=== PATIENT | male | born 2000 | race Caucasian/White ===

== ENCOUNTER 2022-07-21 19:24 | Emergency (ER) | payer SELFPAY ==
[2022-07-21] MEDS ORDERED: ONDANSETRON 4 MG/2 ML VIAL ONE ×2 (20:26→21:26)
[2022-07-21] MEDS ORDERED: MORPHINE 4 MG/ML SYR ONE ×2 (20:26→21:26)
[2022-07-21] MEDS ORDERED: FAMOTIDINE 20 MG/2 ML VIAL IV ONE (20:26)
[2022-07-21 20:52] LABS: Hematocrit 40.5 % (39.6-49.0); Lymphocytes % 14.5 % (15.3-44.8); MCV 88.6 fL (80-100); MPV 7.9 fL (7.6-11.3); RBC Red Blood Cell Count 4.58 M/uL (4.33-5.43)
[2022-07-21 21:15] LABS: Albumin 4.5 g/dL (3.4-5.0); Bilirubin Total 0.4 mg/dL (0.2-1.0); Potassium 3.7 mmol/L (3.5-5.1); Protein, Total 7.8 g/dL (6.4-8.2)
--- NOTE | 2022-07-21 21:20 | RAD REPORT ---
EXAM DESCRIPTION: CT - Abdomen Pelvis W Contrast - 07/21/2022 9:02 pm CLINICAL HISTORY: Abdominal pain COMPARISON: none. TECHNIQUE: Computed axial tomography of the abdomen pelvis was obtained. 100 cc Isovue-300 was admin istered intravenously. Oral contrast was not requested which limits evaluation of bowel and appendix All CT scans are performed using dose optimization technique as appropriate and may include automated exposure control or mA/KV adjustment according to patient size. FINDINGS: Several small right renal calculi. Delay in concentration right kidney. [id number] right hydronephrosis. Right ureter is dilated. A 3 millimeter calculus right UVJ. Ti ny nonobstructing left renal calculus. Liver, spleen, pancreas, adrenals unremarkable Normal appendix. No evidence of diverticulitis IMPRESSION: 3 millimeter calculus right UVJ resulting in mild to moderate right hydronephrosis
[2022-07-21] MEDS ORDERED: KETOROLAC 30 MG/ML INJ ONE (21:58)
[2022-07-21 22:03] LABS: Urine Blood 2+ (Negative); Urine Glucose Negative (Negative); Urine Protein Negative (Negative); Urine Specific Gravity 1.015 (1.005-1.030)
[2022-07-21 22:13] LABS: Urine Crystals Unidentified Few /HPF (None Seen); Urine Mucus Slight /HPF (None Seen); Urine RBC 21-50 /HPF (None Seen)
--- NOTE | 2022-07-21 22:22 | ER ---
Nurse's Notes [facility] Name: Anthony Sanz Age: 22 yrs Sex: Male : 2000 Arrival Date: 07/21/2022 Time: 19:26 Bed 5 Private MD: Diagnosis: Kidney stone;Right lower quadrant abdominal tenderness Presentation: 07/21 19:36 Chief complaint: Patient states: RUQ pain with N/V x4 days, with occasional burning kb3 with urination since today. Coronavirus screen: Vaccine status: Patient reports receiving the 2nd dose of the covid vaccine. Client denies travel out of the [place] in the last 14 days. Ebola Screen: Patient negative for fever greater than or equal to 101.5 degrees Fahrenheit, and additional compatible Ebola Virus Disease symptoms Patient denies exposure to infectious person. Patient denies travel to an Ebola-affected area in the 21 days before illness onset. Initial Sepsis Screen: Does the patient meet any 2 criteria? No. Patient's initial sepsis screen is negative. Does the patient have a suspected source of infection? No. Patient's initial sepsis screen is negative. Risk Assessment: Do you want to hurt yourself or someone else? Patient reports no desire to harm self or others. Onset of symptoms was July 18, 2022. 19:36 Method Of Arrival: Ambulatory kb3 19:36 Acuity: ROB 3 kb3 Triage Assessment: 19:39 General: Appears in no apparent distress. Behavior is calm, cooperative. Pain: kb3 Complains of pain in right upper quadrant Pain does not radiate. Pain currently is 9 out of 10 on a pain scale. Quality of pain is described as burning, crampy, sharp, stabbing, Pain began 2-3 days ago. Is continuous. GI: Reports upper abdominal pain, nausea, vomiting. Historical: - Allergies: 19:39 No Known Allergies; kb3 - Home Meds: 19:39 None [Active]; kb3 - PMHx: 19:39 Kidney stone; kb3 - PSHx: 19:39 Myringotomy and insertion of tympanic ventilation tube; kb3 - Immunization history:: Adult Immunizations up to date, Client reports receiving the 2nd dose of the Covid vaccine, Last tetanus immunization: up to date. - Social history:: Smoking status: Patient/guardian denies using tobacco, Stopped _ months ago .25. Screenin:40 Abuse screen: Denies threats or abuse. Denies injuries from another. Nutritional ll3 screening: No deficits noted. Tuberculosis screening: No symptoms or risk factors identified. Fall Risk None identified. Assessment: 20:40 General: Appears in no apparent distress. uncomfortable, Behavior is calm, cooperative. ll3 Pain: Complains of pain in abdomen Pain does not radiate. Pain currently is 9 out of 10 on a pain scale. Quality of pain is described as crampy, Pain began 07/18 Is continuous. GI: Abdomen is round non-distended, Bowel sounds present X 4 quads. Abd is soft and non tender X 4 quads. Reports lower abdominal pain, upper abdominal pain, nausea, vomiting, Patient currently denies constipation, diarrhea. Derm: Skin is pink, warm \T\ dry. 21:31 Reassessment: Pt c/o abdominal pain 9/10 and nausea, Dr German notified, medicated as ll3 ordered. Vital Signs: 19:36 BP 131 / 97; Pulse 68; Resp 20; Temp 98.7; Pulse Ox 100% ; Weight 63.5 kg; Height 5 ft. kb3 7 in. (170.18 cm); Pain 9/10; 21:31 BP 132 / 90; Pulse 83; Resp 17; Pulse Ox 99% on R/A; ll3 22:10 BP 122 / 81; Pulse 60; Resp 18 S; Pulse Ox 98% on R/A; as6 19:36 Body Mass Index 21.93 (63.50 kg, 170.18 cm) kb3 ED Course: 19:26 Patient arrived in ED. ja2 19:28 Gus German DO is Attending Physician. ms3 19:39 Triage completed. kb3 19:39 Arm band placed on right wrist. kb3 20:40 Patient has correct armband on for positive identification. Bed in low position. Call 3 light in reach. Side rails up X 1. 20:40 Initial lab(s) drawn, by me, sent to lab. Inserted saline lock: 22 gauge in right ll3 antecubital area, using aseptic technique. Blood collected. 21:04 CT Abd/Pelvis - IV Contrast Only In Process Unspecified. EDMS 21:56 Kyler Pham, BRO is Primary Nurse. as6 22:21 Brijesh Yost MD is Referral Physician. ms3 22:27 No provider procedures requiring assistance completed. IV discontinued, intact, as6 bleeding controlled, No redness/swelling at site. Pressure dressing applied. Administered Medications: 20:40 Drug: Pepcid (famotidine) 20 mg Route: IVP; Site: right antecubital; ll3 22:29 Follow up: Response: No adverse reaction as6 20:40 Drug: Zofran (Ondansetron) 4 mg Route: IVP; Site: right antecubital; ll3 22:29 Follow up: Response: No adverse reaction as6 20:40 Drug: morphine 4 mg Route: IVP; Infused Over: 4 mins; Site: right antecubital; ll3 22:29 Follow up: Response: No adverse reaction as6 21:30 Drug: Zofran (Ondansetron) 4 mg Route: IVP; Site: right antecubital; ll3 22:28 Follow up: Response: No adverse reaction as6 21:31 Drug: morphine 4 mg Route: IVP; Infused Over: 4 mins; Site: right antecubital; ll3 22:28 Follow up: Response: No adverse reaction as6 22:00 Drug: Ketorolac 10 mg Route: IVP; Site: right antecubital; as6 22:28 Follow up: Response: No adverse reaction as6 Medication: 22:28 VIS not applicable for this client. as6 Outcome: 22:21 Discharge ordered by . ms3 22:28 Discharged to home ambulatory. as6 22:28 Condition: stable 22:28 Discharge instructions given to patient, Instructed on discharge instructions, follow up and referral plans. medication usage, Demonstrated understanding of instructions, follow-up care, medications, Prescriptions given X 2. 22:29 Patient left the ED. as6 Signatures: Dispatcher [employer] EDMS Gus German DO DO ms3 Kate Márquez2 Kyler Pham RN RN as6 Lore Guzman RN RN ll3 Radha Juan, BRO RN kb3
--- NOTE | 2022-07-21 22:22 | EDPHYS ---
Physician Documentation [facility] Name: Anthony Sanz Age: 22 yrs Sex: Male : 2000 Arrival Date: 07/21/2022 Time: 19:26 Bed 5 Private MD: ED Physician Gus German HPI: 07/21 20:03 This 22 yrs old Male presents to ER via Ambulatory with complaints of Abdominal Pain, ms3 Vomiting, Decreased Appetite, Pain With Urination. 20:03 The patient presents to the emergency department with nausea, vomiting, that is ms3 intermittent, abdominal pain, of the right lower quadrant, described as sharp, and does not radiate. Onset: The symptoms/episode began/occurred 4 day(s) ago, and became worse today. Possible causes: unknown. The symptoms are aggravated by nothing. The symptoms are alleviated by OTC meds. Associated signs and symptoms: Pertinent positives: nausea, vomiting, Pertinent negatives: fever. Severity of symptoms: At their worst the symptoms were severe in the emergency department the symptoms are unchanged Pain is currently a 9 / 10. Historical: - Allergies: 19:39 No Known Allergies; kb3 - Home Meds: 19:39 None [Active]; kb3 - PMHx: 19:39 Kidney stone; kb3 - PSHx: 19:39 Myringotomy and insertion of tympanic ventilation tube; kb3 - Immunization history:: Adult Immunizations up to date, Client reports receiving the 2nd dose of the Covid vaccine, Last tetanus immunization: up to date. - Social history:: Smoking status: Patient/guardian denies using tobacco, Stopped _ months ago .25. ROS: 20:03 Constitutional: Negative for fever, and chills. Neck: Negative for injury, pain, and ms3 swelling, Cardiovascular: Negative for chest pain, and palpitations. Respiratory: Negative for shortness of breath, cough, wheezing, and pleuritic chest pain. 20:03 Skin: Negative for injury, rash, and discoloration. 20:03 Abdomen/GI: Positive for abdominal pain, nausea and vomiting. 20:03 All other systems are negative. Exam: 20:03 Constitutional: This is a well developed, well nourished patient who is awake, alert, ms3 and in no acute distress. Head/Face: Normocephalic, atraumatic. Neck: Trachea midline, no cervical lymphadenopathy. Supple, full range of motion without nuchal rigidity, or vertebral point tenderness. No Meningismus. Chest/axilla: Normal chest wall appearance and motion. Nontender with no deformity. Cardiovascular: Regular rate and rhythm with a normal S1 and S2. No gallops, murmurs, or rubs. Normal PMI, no JVD. No pulse deficits. Respiratory: Lungs have equal breath sounds bilaterally, clear to auscultation and percussion. No rales, rhonchi or wheezes noted. No increased work of breathing, no retractions or nasal flaring. 20:03 Skin: Warm, dry with normal turgor. Normal color with no rashes, no lesions, and no evidence of cellulitis. 20:03 Abdomen/GI: Inspection: abdomen appears normal, Bowel sounds: normal, Palpation: moderate abdominal tenderness, in the right lower quadrant. Vital Signs: 19:36 BP 131 / 97; Pulse 68; Resp 20; Temp 98.7; Pulse Ox 100% ; Weight 63.5 kg; Height 5 ft. kb3 7 in. (170.18 cm); Pain 9/10; 21:31 BP 132 / 90; Pulse 83; Resp 17; Pulse Ox 99% on R/A; ll3 22:10 BP 122 / 81; Pulse 60; Resp 18 S; Pulse Ox 98% on R/A; as6 19:36 Body Mass Index 21.93 (63.50 kg, 170.18 cm) kb3 MDM: 20:02 Patient medically screened. ms3 20:03 Differential diagnosis: Nonspecific abd pain, appendicitis, diverticulitis, viral ms3 gastroenteritis, gastroenteritis. 22:36 Data reviewed: vital signs, nurses notes, lab test result(s), radiologic studies, CT ms3 scan, and as a result, I will discharge patient. Counseling: I had a detailed discussion with the patient and/or guardian regarding: the historical points, exam findings, and any diagnostic results supporting the discharge/admit diagnosis, lab results, radiology results, the need for outpatient follow up, to return to the emergency department if symptoms worsen or persist or if there are any questions or concerns that arise at home. Special discussion: I discussed with the patient/guardian in detail that at this point there is no indication for admission to the hospital. It is understood, however, that if the symptoms persist or worsen the patient needs to return immediately for re-evaluation. ED course: Discussed labs and CT with patient. Patient to follow-up Dr. Yost in 2 to 3 days. Patient stands agrees plan. All questions were answered. Return precautions discussed include worsening symptoms, or any other concerns. On reevaluation patient is alert and oriented x4, in no apparent distress, nontoxic, pain well controlled.. 07/21 20:03 Order name: CBC with Diff; Complete Time: 21:39 ms3 07/21 20:03 Order name: CMP; Complete Time: 21:39 ms3 07/21 20:03 Order name: Lipase; Complete Time: 21:39 ms3 07/21 20:03 Order name: Urine Microscopic Only; Complete Time: 22:20 ms3 07/21 20:03 Order name: CT Abd/Pelvis - IV Contrast Only; Complete Time: 21:39 ms3 07/21 22:04 Order name: Urine Dipstick-Ancillary; Complete Time: 22:20 EDMS 07/21 20:03 Order name: IV Saline Lock; Complete Time: 20:40 ms3 07/21 20:03 Order name: Labs collected and sent; Complete Time: 20:40 ms3 07/21 20:03 Order name: Urine Dipstick-Ancillary (obtain specimen); Complete Time: 22:04 ms3 Administered Medications: 20:40 Drug: Pepcid (famotidine) 20 mg Route: IVP; Site: right antecubital; ll3 22:29 Follow up: Response: No adverse reaction as6 20:40 Drug: Zofran (Ondansetron) 4 mg Route: IVP; Site: right antecubital; ll3 22:29 Follow up: Response: No adverse reaction as6 20:40 Drug: morphine 4 mg Route: IVP; Infused Over: 4 mins; Site: right antecubital; ll3 22:29 Follow up: Response: No adverse reaction as6 21:30 Drug: Zofran (Ondansetron) 4 mg Route: IVP; Site: right antecubital; ll3 22:28 Follow up: Response: No adverse reaction as6 21:31 Drug: morphine 4 mg Route: IVP; Infused Over: 4 mins; Site: right antecubital; ll3 22:28 Follow up: Response: No adverse reaction as6 22:00 Drug: Ketorolac 10 mg Route: IVP; Site: right antecubital; as6 22:28 Follow up: Response: No adverse reaction as6 Disposition Summary: 07/21/22 22:21 Discharge Ordered Location: Home ms3 Condition: Stable ms3 Diagnosis - Kidney stone ms3 - Right lower quadrant abdominal tenderness ms3 Followup: ms3 - With: - When: 2 - 3 days - Reason: Recheck today's complaints Discharge Instructions: - Discharge Summary Sheet ms3 - Kidney Stones ms3 Forms: - Medication Reconciliation Form ms3 - Thank You Letter ms3 - Antibiotic Education ms3 - Prescription Opioid Use ms3 Prescriptions: - Flomax 0.4 mg Oral capsule - take 1 capsule by ORAL route once daily 1/2 hour following the same meal each ms3 day; 15 capsule; Refills: 0, Product Selection Permitted - Tylenol-Codeine #3 300 mg-30 mg Oral - take 1 tablet by ORAL route every 6 hours; 12 tablet; Refills: 0, Product ms3 Selection Permitted Signatures: Dispatcher [employer] EDMS Gus German, DO ms3 Kyler Pham RN RN as6 Lore Guzman RN RN ll3 Radha Juan RN RN kb3
[2022-07-21 22:41] VITALS: TEMP 98.7
[2022-07-21 22:43] VITALS: BP 122/81; O2SAT 98
== END 2022-07-21 22:29 | disposition home or self-care (01) ==
LOC: ER 19:24
DX: N20.0 Calculus of kidney (principal); Z87.442 Personal history of urinary calculi
CPT/HCPCS: 36415; 74177; 80053; 81003; 81015; 82565; 83690; 85025; 96374; 96375; 99284; J2405; Q9967